=== PATIENT | female | born 1990 | race African-American/Black ===

== ENCOUNTER 2017-05-12 09:15 | Emergency (ER) | payer OTHER | END 2017-05-12 10:12 | disposition home or self-care (01) | LOC: M ED 09:15 | DX: M54.5 Low back pain (principal); G89.29 Other chronic pain | CPT/HCPCS: 81025 ==

== ENCOUNTER 2017-06-09 18:32 | Emergency (ER) | payer OTHER | END 2017-06-09 23:11 | disposition home or self-care (01) | LOC: M ED 18:32 | DX: G62.9 Polyneuropathy, unspecified (principal) | CPT/HCPCS: 73630 ==

== ENCOUNTER 2017-07-14 09:19 | Emergency (ER) | payer OTHER ==
[2017-07-14] MEDS: KETOROLAC 60 MG/2 ML VIAL (J1885) IM (09:56)
== END 2017-07-14 10:49 | disposition home or self-care (01) ==
LOC: M ED 09:19
DX: S39.012A Strain of muscle, fascia and tendon of lower back, initial encounter (principal); X50.9XXA Other and unspecified overexertion or strenuous movements or postures, initial encounter; Y92.9 Unspecified place or not applicable; Y93.89 Activity, other specified; Y99.9 Unspecified external cause status; G89.29 Other chronic pain; M54.9 Dorsalgia, unspecified
CPT/HCPCS: J1885

== ENCOUNTER 2017-11-30 20:28 | Emergency (ER) | payer OTHER ==
[2017-11-30] MEDS: KETOROLAC 60 MG/2 ML VIAL (J1885) IM (21:54)
[2017-11-30 22:21] LABS: APPEARANCE, URINE CLEAR (CLEAR); BACTERIA, URINE AUTO NEGATIVE (NEGATIVE); BILIRUBIN, URINE AUTO NEGATIVE (NEGATIVE); BLOOD, URINE BLOOD NEGATIVE (NEGATIVE); COLOR, URINE YELLOW (YELLOW); GLUCOSE, URINE (UA) AUTO NEGATIVE (NEGATIVE); KETONE, URINE AUTO NEGATIVE (NEGATIVE); LEUKOCYTE ESTERASE, URINE AUTO NEGATIVE (NEGATIVE); NITRITE, URINE AUTO NEGATIVE (NEGATIVE); PROTEIN, URINE AUTO NEGATIVE (NEGATIVE); RBC, URINE AUTO 0 /HPF (0-3); SPECIFIC GRAVITY URINE AUTO 1.015 (1.002-1.035); SQUAMOUS EPITHELIAL CELL UR AU 0 /HPF (0-6); UROBILINOGEN, URINE AUTO 0.2 mg/dL (0.0-2.0); WBC, URINE AUTO 0 /HPF (0-3)
[2017-11-30] MEDS: diazePAM 2 MG TAB PO (23:16)
== END 2017-11-30 23:24 | disposition home or self-care (01) ==
LOC: M ED 20:28
DX: M62.830 Muscle spasm of back (principal); Z79.899 Other long term (current) drug therapy
CPT/HCPCS: J1885